=== PATIENT | female | born 1985 ===

== ENCOUNTER 2017-10-29 08:48 | Inpatient (IN) | payer OTHER ==
--- NOTE | 2017-10-29 10:47 | HP ---
General Information - General Information Maternal Age: 32 Grav: 1 Para: 0 SAB: 0 IEA: 0 Estimated Due Date: 10/22/17 Determined By: LMP Gestational Age in Weeks and Days: 41 Weeks and 0 Days Maternal Blood Type and Rh: A Positive - Results this Serology/RPR Result: Non-Reactive Rubella Result: Immune HBsAg Result: Negative HIV Result: Negative GBS Culture Result: Negative Past Medical History Delivery History: See Records - Primip Pertinent Past Medical History: Non-Contributory Pertinent Past Surgical History: None Pertinent Family History: Non-Contributory - Antepartal Records Antepartal Records: Reviewed, Uncomplicated Review of Systems Constitutional: Comfortable CV Complaint: No Respiratory: Shortness of Breath: No Gastrointestinal: No Nausea/Vomiting Genitourinary: Leaking Fluid, No Dysuria, No Bleeding Musculoskeletal: No Complaint Neurological: No Headache, No Visual Changes Movement: Normal Exam Allergies/Adverse Reactions: Allergies No Known Allergies Allergy (Verified 10/29/17 09:56) T 98.5, P-85, R-16, BP 115/69, O2 100% Lab Values - Entire Visit: Laboratory Tests 10/29/17 09:17 Vag Amniotic Fld Detect Positive - Measurements Height: 5 ft 2.25 in Weight: 155 lb Weight in lbs: 155 Body Mass Index (BMI): 28.0 Pre- Weight: 122 lb Weight Gained This : 33 lbs and 0 ozs - Exam Abdomen: No Upper Quadrant Pain Breast: Breast Exam Deferred CVA: No CVA Tenderness Extremities: No Edema Heart: Normal Rhythm/Heart Sounds HEENT: No Significant Findings Lungs: Clear Bilaterally Rectal: Rectal Exam Deferred Reflexes: DTR 2+ Thyroid: No Thyromegaly - Cervical Exam Deferred - Abdominal Exam Abdomen Exam: Non-Tender, Fundal Height Consistent with Dates - Membranes Membrane Status: SROM - Ultrasound/Biophysical Profile Ultrasound Status: Bedside Exam Ultrasound Findings: VTX EFM Findings - External Monitor Findings Baseline Heart Rate: 140 External Monitor Findings: Accelerations Present, No Pattern of Variable or Late Decelerations, Variability Moderate, Baseline Stable Contractions: Irregular, Mild, 45-90 Seconds Assessment/Plan - Reason for Visit Reason for Visit: PROM - Obstetrical Risk Factors Obstetrical Risk Factors: Post-Dates - Plan Plan: Early Labor - Recommended augmentation, pt declines at this time - Date/Time of Admission Date of Admission: 10/29/17 Time of Admission: 10:53
[2017-10-29] MEDS ORDERED: Misoprostol TAB* 100 MCG ONE (21:32)
[2017-10-29] MEDS ORDERED: Misoprostol TAB* 100 MCG PO ONE (22:09)
[2017-10-30] MEDS ORDERED: Misoprostol TAB* 100 MCG ONE (01:30)
[2017-10-30] MEDS ORDERED: Ondansetron ODT TAB* 4 MG ONE (04:41)
[2017-10-30] MEDS ORDERED: Ondansetron ODT TAB* 4 MG SL ONE (06:00)
[2017-10-30] MEDS ORDERED: Glycerin ADULT SUPP PR PRN (09:34)
[2017-10-30] MEDS ORDERED: Dibucaine 1% 28.35 GM TUBE PR PRN (09:34)
[2017-10-30] MEDS ORDERED: OXYTOCIN* 10 UNITS/ML 1 ML VIAL IM PRN (09:34)
[2017-10-30] MEDS ORDERED: Acetaminophen TAB* 325 MG PO PRN (09:34)
[2017-10-30] MEDS ORDERED: Witch Hazel PAD* JAR TOPICAL PRN (09:34)
[2017-10-30] MEDS: Ibuprofen TAB* 600 MG PO PRN ×3 (10:39→22:51)
[2017-10-30] MEDS: Docusate CAP* 100 MG PO SCH ×2 (13:38→21:25)
[2017-10-30] MEDS ORDERED: Phenylephrine IV* 40 MCG/ML 10 ML SYRINGE ONE (18:52)
[2017-10-31 06:30] LABS: ABS Basophils 0.1 10^3/ul (0-0.2); ABS Eosinophils 0.1 10^3/ul (0-0.6); ABS Lymphocytes 2.2 10^3/ul (1.0-4.8); ABS Neutrophils 8.6 10^3/ul (1.5-7.7); ABS Nucleated RBC 0 10^3/ul; Eosinophil % 0.8 % (0-6); Hematocrit 34 % (35-47); Hemoglobin 11.7 g/dl (12.0-16.0); Lymphocyte % 18.5 % (25-47); Mean Corpuscular HGB Conc 35 g/dl (31-36); Mean Corpuscular Hemoglobin 31 pg (27-31); Mean Corpuscular Volume 89 fL (80-97); Mean Platelet Volume 9.3 um3 (7.4-10.4); Nucleated Red Blood Cells % 0; Platelet Count 156 10^3/ul (150-450); Red Cell Distribution Width 14 % (10.5-15)
[2017-10-31] MEDS ORDERED: Ferrous Gluconate TAB* 324 MG TAB PO SCH (09:00)
[2017-10-31] MEDS: Docusate CAP* 100 MG PO SCH ×2 (10:46→20:14)
--- NOTE | 2017-10-31 20:40 | PTEDU ---
Patient Name: ROSEANNA WILHELM ROSEANNA WILHELM selected video: Follow Me Mum: [employer] [facility] [employer] to view on 2017 at 8:39:32 PM from [id number]
[2017-11-01] MEDS: Ibuprofen TAB* 600 MG PO PRN (01:58)
[2017-11-01] MEDS: Docusate CAP* 100 MG PO SCH (08:01)
[2017-11-01 08:09] VITALS: BP 121/60
--- NOTE | 2017-11-01 10:36 | PTEDU ---
Patient Name: ROSEANNA WILHELM ROSEANNA WILHELM selected video: Follow Me Mum: [employer] [place] to view on 2017 at 10:35:19 AM from [email or web address]
== END 2017-11-01 12:00 | disposition home or self-care (01) | DRG 774 ==
LOC: MCHOBOUT 08:48 → MCHOB 10:36
PROVIDERS: ADMIT Midwife; ATTEND Midwife
PROC: 10E0XZZ Delivery of Products of Conception, External Approach (ICD-10-PCS; principal; 2017-10-30)
PROC: 0W8NXZZ Division of Female Perineum, External Approach (ICD-10-PCS; 2017-10-30)
PROC: 4A1HXCZ Monitoring of Products of Conception, Cardiac Rate, External Approach (ICD-10-PCS; 2017-10-30)
DX: O48.0 Post-term pregnancy (principal); O73.1 Retained portions of placenta and membranes, without hemorrhage; Z37.0 Single live birth; Z3A.41 41 weeks gestation of pregnancy; O42.12 Full-term premature rupture of membranes, onset of labor more than 24 hours following rupture; K64.9 Unspecified hemorrhoids; O75.89 Other specified complications of labor and delivery; O32.6XX0 Maternal care for compound presentation, not applicable or unspecified; O32.2XX0 Maternal care for transverse and oblique lie, not applicable or unspecified
CPT/HCPCS: 36415; 84112; 85025; A9270-GY; S0191